=== PATIENT | female | born 1940 | race Caucasian/White ===

== ENCOUNTER → 2016-12-12 | Outpatient (CLI) | payer MEDICARE ==
[~2016-12-12] MED LIST: ANUSOL-HC21 GM PR; ASPIRIN PO; CALCIUM 500 + D1 TAB PO; CERTAGEN PO; CLARITIN10 MG PO; DYAZIDE 37.5/251 CAP PO; LOPRESSOR PO; LOTREL 5/20 MG1 CAP PO; TRICOR PO; VITAMIN C PO
--- NOTE | ~2016-12-12 | US5 ---
[facility] A Service of [facility] & [facility] RADIOLOGY TEXT RESULTS PATIENT: RAMY ROTH SCN LOCATION: [facility] : 40 UNIT #: [id number] AGE: [address]: Lasha Russo MD SEX: F ORDER DR: [id number] [facility] [address] [place], [place] [address] [id number] O MR#: [id number] Acc #: [id number] NAME: RAMY ROTH : 1940 SEX: F STUDY DATE/TIME: 12/12/2016 10:17 UNIT: [facility] ROOM: STUDY DESCRIPTION: US Abdominal Complete Attending Physician: Lasha Russo Jr., M.D. Ordering Physician: Lasha Russo Jr., M.D. Primary Care Physician: Lasha Russo Jr., M.D. MEDICAL IMAGING REPORT This report is preliminary unless electronic signature is present EXAM Complete abdominal ultrasound 12/12/2016 HISTORY A 76-year-old female with abnormal liver function test beginning May 2016. Diabetes. HISTORY Uterine cancer. Cholecystectomy. COMPARISON None. FINDINGS The pancreas has a normal sonographic appearance. Liver demonstrates normal homogeneous echotexture without focal or suspicious abnormality. Main portal vein is patent. Liver size is normal, 15.8 cm in longitudinal plane. Common bile duct is within normal limits for the patient's age, and status post cholecystectomy, measuring up to 8 mm. No intrahepatic biliary ductal dilation is seen. Right kidney measures 11.4 cm in length, and a tiny cyst is seen in the right upper renal pole measuring about 1.2 cm. Another cyst in the right mid to lower renal pole measures 1.4 cm. No right hydronephrosis is seen. Abdominal aortic caliber is within normal limits measuring 1.8 cm proximally and demonstrates normal color flow. Intrahepatic IVC has normal hancock-scale appearance. Left kidney measures 11.1 cm in length without focal cortical lesion. There is mild left renal pelvocaliectasis in the lower pole without cayden hydronephrosis. Spleen size is normal, 10.1 cm in length. IMPRESSION 1. Unremarkable sonographic appearance of the liver. 2. Common bile duct caliber is within normal limits for the patient's [facility] A Service of [facility] & [facility] RADIOLOGY TEXT RESULTS PATIENT: RAMY ROTH LOCATION: [facility] : 40 UNIT #: [id number] AGE: [address]: Lasha Russo MD SEX: F ORDER DR: stated age and status post cholecystectomy. No biliary dilation is seen. 3. Cholecystectomy. 4. Two right renal cyst. 5. Mild pelvocaliectasis in the left lower renal pole, which may represent normal variant for this patient. No previous examination for correlation. 6. Unremarkable appearance of the pancreas and spleen. 7. No ascites. Dictated by... Sammie Arriaga M.D. THIS IS AN ELECTRONICALLY VERIFIED REPORT Sammie Arriaga M.D. at 12/13/2016 9:40 AM DARWIN/miguel angel TD: 12/12/2016 13:51 JOB #: [id number] MEDICAL IMAGING REPORT Page 1 of 1 COPY
--- NOTE | ~2016-12-12 | BD1 ---
[facility] A Service of [facility] RADIOLOGY TEXT RESULTS PATIENT: RAMY ROTH SCN LOCATION: [facility] : 40 UNIT #: [id number] AGE: [address]: Lasha Russo MD SEX: F ORDER DR: [id number] [place] [id number] [facility]. [place], [place] [address] [id number] O MR#: [id number] Acc #: [id number] NAME: RAMY ROTH : 1940 SEX: F STUDY DATE/TIME: 12/12/2016 10:08 UNIT: [facility] ROOM: STUDY DESCRIPTION: BD Dexa Bone Dens 1+ Site Attending Physician: Lasha Russo Jr., M.D. Ordering Physician: Lasha Russo Jr., M.D. Primary Care Physician: Lasha Russo Jr., M.D. MEDICAL IMAGING REPORT This report is preliminary unless electronic signature is present EXAM DXA scan, 12/12/2016. HISTORY 76-year-old postmenopausal female for osteoporosis screening. On Citracal calcium supplementation. COMPARISON None FINDINGS L1-L4 total bone mineral total bone mineral density is 1.045 g/cm2, with T-score 0.0 and Z-score 2.4, within normal limits. Left femoral neck bone mineral density is 0.805 g/cm2, with T-score -0.4 and Z-score 1.7, within normal limits. IMPRESSION Normal bone mineral density within the lumbar spine and within the left femoral neck. Dictated by... Sammie Arriaga M.D. THIS IS AN ELECTRONICALLY VERIFIED REPORT Sammie Arriaga M.D. at 12/13/2016 9:40 AM DARWIN/harsha TD: 12/12/2016 11:58 JOB #: [id number] MEDICAL IMAGING REPORT [facility] A Service [facility] RADIOLOGY TEXT RESULTS PATIENT: RAM[facility] ROTH [id number] [birth year] UNIT #: [id number] AGE: [address]: Lasha Russo MD SEX: F ORDER DR: Page 1 of 1 COPY
--- NOTE | ~2016-12-12 | MY11 ---
[facility] A Service of [facility] RADIOLOGY TEXT RESULTS PATIENT: RAMY ROTH SCN LOCATION: [facility] : 40 UNIT #: [id number] AGE: [address]: Lasha Russo MD SEX: F ORDER DR: [id number] [facility] [address] [facility] [place], [place] [address] [id number] O MR#: [id number] Acc #: [id number] NAME: RAMY ROTH : 1940 SEX: F STUDY DATE/TIME: 12/12/2016 9:43 UNIT: [facility] ROOM: STUDY DESCRIPTION: MY Mammogram Screening Dig Jonathan Attending Physician: Lasha Russo Jr., M.D. Ordering Physician: Lasha Russo Jr., M.D. Primary Care Physician: Lasha Russo Jr., M.D. MEDICAL IMAGING REPORT This report is preliminary unless electronic signature is present EXAM Digital screening mammogram 12/12/2016, [facility] HISTORY 76-year-old woman positive family history, mother age 67. Annual screening. COMPARISON Mammograms date to 05/18/2008 with the most recent 09/29/2015. FINDINGS Digital imaging of each breast was completed utilizing screening protocol. Review includes FDA approved CAD device. Breast parenchyma is heterogeneous with small nodular pattern bilaterally. The parenchymal dominance is stable upper central right breast. I see no suspicious mass characteristics. There are no interval occurring microcalcifications and no architectural deformity at this time. IMPRESSION Stable benign mammogram. Annual screening recommended. Patient's over the age of 40 are entered into a reminder system with target due date for the next mammogram. A result letter will be sent to the patient. BIRADS: 2 Benign findings. Dictated by... Jose Ramon Vega M.D. THIS IS AN ELECTRONICALLY VERIFIED REPORT Jose Ramon Vega M.D. at 12/12/2016 12:29 PM [facility] A Service of [facility] RADIOLOGY TEXT RESULTS PATIENT: [facility]OTH [facility]: [facility] : 40 UNIT #: [id number] AGE: [address]: Lasha Russo MD SEX: F ORDER DR: ANUSHKA/suly TD: 12/12/2016 11:36 JOB #: [id number] MEDICAL IMAGING REPORT Page 1 of 1 COPY
== END | disposition home or self-care (01) ==
LOC: CWCC 09:26
DX: Z12.31 Encounter for screening mammogram for malignant neoplasm of breast (principal); Z13.820 Encounter for screening for osteoporosis; Z78.0 Asymptomatic menopausal state; R94.5 Abnormal results of liver function studies; Z80.3 Family history of malignant neoplasm of breast; Z90.49 Acquired absence of other specified parts of digestive tract; N28.1 Cyst of kidney, acquired; N28.89 Other specified disorders of kidney and ureter
CPT/HCPCS: 76700; 77080; G0202